=== PATIENT | female | born 1950 | race Caucasian/White ===

== ENCOUNTER → 2019-10-07 08:57 | Outpatient (BNVA) | payer OTHER, MEDICARE, SELFPAY | PROVIDERS: PCP Nurse Practitioner; Referring Provider Nurse Practitioner; Visit Provider Surgery | DX: Z48.815 Encounter for surgical aftercare following surgery on the digestive system (principal) ==

== ENCOUNTER → 2020-07-09 09:22 | Outpatient (BNVA) | payer OTHER, MEDICARE, SELFPAY | PROVIDERS: PCP Nurse Practitioner; Referring Provider Nurse Practitioner; Visit Provider Physical Therapy Assistant | DX: Z12.11 Encounter for screening for malignant neoplasm of colon (principal); Z86.010 Personal history of colon polyps ==

== ENCOUNTER 2020-08-06 08:09 | Day surgery (SDC) | payer OTHER, SELFPAY ==
[2020-08-06 08:31] VITALS: BP 156/93; PULSE 66; RESP 18; TEMP 36.3; O2SAT 98
[2020-08-06] MEDS: Lactated Ringers 1,000 ML 80 ML IV (08:46)
--- NOTE | 2020-08-06 09:15 | W.ANESPRE ---
General Info Date of Service Date Performed: 08/06/20 Height: 5 ft 3 in Weight: 89.5 kg Body Mass Index (BMI): 34.9 Surgical Procedure: Operation Date: 08/06/20 09:35 Proposed Procedures Side Surgeon p Kandace Lima MD Meds Allergies and Home Medications Allergies Allergy/AdvReac Type Severity Reaction Status Date / Time No Known Drug Allergies Allergy Unverified 08/06/20 08:29 Home Medication Medication Instructions Recorded bisacodyl 5 mg tablet,delayed 5 mg PO ONCE #4 tab 07/09/20 release polyethylene glycol 3350 17 238 g PO ONCE #238 g 07/12/20 gram/dose oral powder Current Visit Medications: Current Medications Generic Name Dose Route Start Last Admin Trade Name Freq PRN Reason Stop Dose Admin Ringer's Solution 1,000 mls @ 80 mls/hr 08/06/20 06:00 08/06/20 08:46 IV 09/04/20 23:59 80 mls/hr INFUSION MICHELE Administration IV Miscellaneous Supplies 1 each 08/06/20 06:00 Iv Access IV 09/04/20 23:59 DIRECTED MICHELE Sodium Chloride 0 ml 08/06/20 06:00 Normal Saline Flush 10 Ml Syr IV 09/04/20 23:59 PRN PRN Sodium Chloride 0 ml 08/06/20 06:00 Normal Saline 10 Ml Vial IJ 09/04/20 23:59 DIRECTED PRN Sterile Water 0 ml 08/06/20 06:00 Water,Injection,Sterile 10 Ml Vial IJ 09/04/20 23:59 DIRECTED PRN PFSH Active Problems Active Problems: Problem Status Onset Code Recurrent hernia of anterior abdominal wall with obstruction K43.0 Screening for colon cancer Z12.11 Status post repair of recurrent ventral hernia Z98.890, Z87.19 Medical History Medical History Dyslipidemia Epigastric hernia Hypertension Obesity Vaginal wall prolapse Surgical History Surgical History (Updated 08/06/20 @ 08:27 by Rossy Wagner) History of colonoscopy History of hysterectomy History of lumpectomy of left breast Status post repair of recurrent ventral hernia Tobacco Smoking/Tobacco Use Status: Former Tobacco Use Tobacco: How many years used: 3 Alcohol Alcohol Intake: current Alcohol intake frequency: a few times a week Alcohol type: beer Substance Use Substance use: Never Substance use type: does not use Vital Signs and Lab Results Vital Signs Most Recent Vital Signs in EMR: Most Recent Vital Signs Temp Pulse Resp BP Pulse Ox 36.3 C L 66 18 156/93 H 98 08/06/20 08:31 08/06/20 08:31 08/06/20 08:31 08/06/20 08:31 08/06/20 08:31 Lab Results Blood Type / Crossmatch: No Data to Display Complete Blood Count: No Data to Display Complete Metabolic Panel: No Data to Display Liver Function Panel: No Data to Display Coagulation Panel: No Data to Display Cardiac Panel: No Data to Display Arterial Blood Gas: No Data to Display Venous Blood Gas: No Data to Display Pancreas Panel: No Data to Display Thyroid Panel: No Data to Display Infectious Disease: No Data to Display Blood Cultures: No Data to Display Toxicology Panel: No Data to Display Anesthesia Assessment and Plan Anesthesia History Personal History: No History of Anesthesia Complications Family History: No Family History of Anesthesia Complications Exercise Tolerance Exercise Tolerance: Metabolic Equivalents>4 Pertinent Negatives Pertinent Negatives: No Symptoms of GERD, No Major Cardiovascular Symptoms or Complaints, No Major Pulmonary Symptoms or Complaints and No History of CVA/TIA Cardiac & Pulmonary Exam Cardiac Exam: Normal S1/S2 Heart Sounds Pulmonary Exam: Clear Bilateral Breath Sounds Airway Exam Known Difficult Airway: No Mallampati Class: 1 Mouth Opening: Normal (> 3cm) Thyromental Distance: Greater than 3 cm Neck Range of Motion: Full ROM Neck Circumference: Normal Teeth Condition: Normal Dentition ASA Classification ASA Score: ASA 2 Emergency Case?: No NPO Status NPO Status: NPO Clears >2 hours, Solids >8 hours Anesthesia Plan Resuscitation Status: Full Code Anesthesia Technique: General Anesthesia Airway Planned: Natural Airway Monitors Used: Standard Monitors
[2020-08-06 09:17] VITALS: BMI 34.9
[2020-08-06 11:18] VITALS: BP 88/58; PULSE 58; RESP 16; TEMP 36.1; O2SAT 93
--- NOTE | 2020-08-06 11:27 | W.COLOREPORT ---
Date of service: 08/06/20 Time of Service: 11:27 Colonoscopy Report Date of procedure: 08/06/20 Pre-op diagnosis general: colorectal cancer screening Post-op diagnosis procedure note: same Procedure: Partial colonoscopy, to distal transvesrse colon Surgeon: Gautam Lima Anesthesia Type: MAC Estimated blood loss (mL): 0 Pathology: none sent Complications: Other (With manual abdominal pressure, and change in position, the patient became bradycardic) Disposition: same day Indications: Colorectal cancer screening Last colonoscopy was in 2006, reportedly with hyperplastic polyps. No current complaints. Prep: Miralax/Dulcolax Retraction Time: 8 Findings: no polyps visualized Procedure Description: After informed consent was obtained the patient was taken to the procedure room and placed in left lateral decbitus position. Monitors were applied and a time out was done. The patients name, date of , procedure, allergies to medications and metal in their body was reviewed. The patient was then sedated. Once sedated and comfortable a rectal exam was done. External exam was normal. Internal exam revealed a normal sphincter tone and no palpable masses. The colonoscope was then introduced and advanced to the distal transverse colon with significant difficulty. Her colon was very tortuous and redundant. External manual pressure was applied, and the patient was turned supine to try to aid in the passage of the scope. However, I was unable to advance past the hepatic flexure, and the patient became bradycardic with increased stretch. The The procedure was then abandoned for patient safety. There are no AVMs, polyps, or diverticula apparent today. Mucosa is pink and normal. The remainder of the the colon appears normal. The prep was good. The scope was retracted over 8 minutes back into the rectum, as her heart rate normalized. The scope was removed and the patient was woken up and taken back to Same day surgery in stable condition. The patient tolerated the procedure well and there were no immediate complications. Follow-up: With PCP, for Cologuard test
[2020-08-06 11:48] VITALS: BP 130/74; PULSE 62; RESP 16; TEMP 36.2; O2SAT 97
--- NOTE | 2020-08-06 11:53 | W.ANESPOSTOP ---
Postoperative Evaluation Date, Time and Location Date Performed: 08/06/20 Time Performed: 11:53 Patient Location: Day Surgery Unit Vital Signs Most Recent Imported Vital Signs: Most Recent Vital Signs Temp Pulse Resp BP Pulse Ox 36.3 C L 66 18 156/93 H 98 08/06/20 08:31 08/06/20 08:31 08/06/20 08:31 08/06/20 08:31 08/06/20 08:31 Assessment Mental Status: Awake (Alert & Oriented to Patient Baseline) Airway and Respiratory Function: Patent airway with normal (patient baseline) respiratory exam Cardiovascular Function: Hemodynamically Stable Hydration Status: Adequately Hydrated Nausea & Vomiting: No Nausea or Vomiting Pain: Pt. Denies Any Pain Peripheral Nerve Block: Patient did not receive a nerve block
== END 2020-08-06 12:40 | disposition home or self-care (01) ==
PROVIDERS: PCP Nurse Practitioner; Visit Provider Surgery
PROC: 0DJD8ZZ Inspection of Lower Intestinal Tract, Via Natural or Artificial Opening Endoscopic (ICD-10-PCS; CPT 45378; principal; 2020-08-06 09:30)
DX: Z12.11 Encounter for screening for malignant neoplasm of colon (principal); E66.9 Obesity, unspecified; I10 Essential (primary) hypertension; R00.1 Bradycardia, unspecified
CPT/HCPCS: G0121; J2001; J2704